=== PATIENT | female | born 1985 | race Hispanic/Latino ===

== ENCOUNTER 2023-05-30 06:02 | Day surgery (SDC) | payer OTHER ==
[2023-05-26 13:05] VITALS: BMI 33.5
[2023-05-26 13:27] LABS: Hemoglobin 12.9 g/dL (12.0-15.5); Mean Corpuscular HGB CONC 32.3 g/dL (32.0-36.0); Mean Corpuscular Hemoglobin 27.1 pg (27.0-33.0); Mean Platelet Volume 8.8 fl (7.4-10.4); Platelet Count 256 10x3/uL (150-450); RBC Distribution Width 15.1 % (11.5-14.5); Red Blood Cell (RBC) Count 4.76 10x6/uL (3.90-5.03); White Blood Cell (WBC) Count 7.7 10x3/uL (3.5-10.5)
[2023-05-30] MEDS ORDERED: Famotidine/PF 20 mg/2ml Vial ONE (06:18)
[2023-05-30] MEDS ORDERED: Gabapentin 300 MG CAP ONE (06:18)
[2023-05-30] MEDS ORDERED: CeleCOXIB 100 MG CAP ONE (06:18)
[2023-05-30] MEDS ORDERED: Bupivacaine PF 0.5% 30 ML VIAL ONE (06:32)
[2023-05-30] MEDS ORDERED: EPINEPHrine 1 MG/ML VIAL ONE (06:32)
[2023-05-30] MEDS ORDERED: Glycopyrrolate 0.2 MG/ML 5 ML SYRINGE ONE (07:09)
[2023-05-30] MEDS ORDERED: Rocuronium Bromide 10 MG/ML (10ML VIAL) ONE (07:09)
[2023-05-30] MEDS ORDERED: Fentanyl 250 MCG/5 ML VIAL ONE ×2 (07:09→09:18)
[2023-05-30] MEDS ORDERED: Dexamethasone 4 mg/ml Vial ONE (07:09)
[2023-05-30] MEDS ORDERED: Midazolam HCl 2 mg/2 ml Vial ONE (07:09)
[2023-05-30] MEDS ORDERED: PROPOFOL 40 ML ONE (07:09)
[2023-05-30] MEDS ORDERED: Ondansetron PF 4 MG/2 ML Vial ONE (07:09)
[2023-05-30] MEDS ORDERED: Lidocaine 2% PF 5 ML VIAL ONE (07:09)
[2023-05-30] MEDS ORDERED: Clindamycin/D5W 900 mg/50 ml Premix Bag ONE (07:27)
[2023-05-30] MEDS ORDERED: LevoFLOXacin 500 mg/D5W 100 ML BAG ONE (08:22)
[2023-05-30] MEDS ORDERED: Ketorolac Tromethamine 30 MG/ML VIAL ONE (11:22)
[2023-05-30] MEDS ORDERED: Meperidine HCl/PF 25 MG/ML VIAL ONE (11:26)
[2023-05-30] MEDS ORDERED: fentaNYL 50 mcg/mL 1 mL Vial ONE (11:43)
[2023-05-30] MEDS ORDERED: Ondansetron HCl/PF 4 MG/2 ML Vial IVP PRN (11:45)
[2023-05-30] MEDS ORDERED: Meperidine HCl/PF 25 MG/ML VIAL SLOW IVP PRN (11:45)
[2023-05-30] MEDS ORDERED: Ketorolac Tromethamine 30 MG/ML VIAL IVP PRN (11:45)
== END 2023-05-30 13:15 | disposition home or self-care (01) ==
LOC: CSHSDC 06:02
PROVIDERS: ATTEND Student in an Organized Health Care Education/Training Program
PROC: 0UB74ZZ Excision of Bilateral Fallopian Tubes, Percutaneous Endoscopic Approach (ICD-10-PCS; principal; 2023-05-30)
PROC: 0UB24ZZ Excision of Bilateral Ovaries, Percutaneous Endoscopic Approach (ICD-10-PCS; principal; 2023-05-30)
PROC: 0WBF0ZZ Excision of Abdominal Wall, Open Approach (ICD-10-PCS; principal; 2023-05-30)
PROC: 0UT94ZZ Resection of Uterus, Percutaneous Endoscopic Approach (ICD-10-PCS; principal; 2023-05-30)
DX: S31.41XA Laceration without foreign body of vagina and vulva, initial encounter (principal); N80.C11 Endometriosis of the anterior abdominal wall, fascia and muscular layers; N80.121 Deep endometriosis of right ovary; K66.0 Peritoneal adhesions (postprocedural) (postinfection); Z88.0 Allergy status to penicillin; X58.XXXA Exposure to other specified factors, initial encounter
CPT/HCPCS: 84702; 85027; 86850; 86900; 86901; 88305; 88307; C1889; J0171; J1100; J1885; J1956; J2001; J2175; J2250; J2405; J2704; J3010; J3490; S0020; S0028